=== PATIENT | female | born 1970 | race Caucasian/White ===

== ENCOUNTER → 2017-09-30 11:31 | Outpatient (REF) | payer BC, SELFPAY ==
--- NOTE | 2017-09-30 09:45 | PAPFT_PTH ---
PATIENT: Yue Guzman LOC: [facility] U#:[id number] AGE/SX: 54/F ROOM: RE09/30/[address]: Essie Hernandez : 1970 BED: DIS: SPEC #: [id number] RECD: 10/01/17 12:59 STATUS: GUI CALLAHAN #: [id number] IRASEMA: 09/30/17 09:[address]: Essie Hernandez DEPT: [facility] Cytology RECD BY: Deann Brown Tissues: 1 - CX/ENDOCX FOR PAP SMEARS Procedures: PAP THIN PREP/UVM Screening HPV DNA PROBE Comments: [id number]
[2017-10-02 14:08] LABS: Chlamydia Result Negative; GC Result Negative; Specimen Description CERVIX
== END ==
LOC: NCHCN 11:31
PROVIDERS: PCP Physician Assistant Medical; Visit Provider Physician Assistant Medical
DX: Z11.3 Encounter for screening for infections with a predominantly sexual mode of transmission (principal); Z12.4 Encounter for screening for malignant neoplasm of cervix; Z11.51 Encounter for screening for human papillomavirus (HPV); Z01.419 Encounter for gynecological examination (general) (routine) without abnormal findings
CPT/HCPCS: 87491; 87591; 88142; 87624

== ENCOUNTER 2018-06-22 12:43 | Outpatient (REF) | payer BC, SELFPAY ==
[2018-06-22 21:53] LABS: ALT 32 U/L (12-78); AST 31 U/L (15-37); Albumin 3.7 g/dL (3.4-5.0); Alkaline Phosphatase 74 U/L (46-116); Anion Gap 13.5 mmol/L (3-11); BUN 17 mg/dL (7-18); Bilirubin, Total 0.5 mg/dL (0.2-1.0); CO2 21.5 mmol/L (21.0-32.0); CREATININE 1.31 mg/dL (0.55-1.02); Calcium 8.7 mg/dL (8.5-10.1); Chloride 100 mmol/L (98-107); Estimated GFR 43.52 (mL/min/1.73m2); Glucose 116 mg/dL (70-100); Potassium 4.4 mmol/L (3.5-5.1); Sodium 135 mmol/L (136-145); Total Protein 7.2 g/dL (6.4-8.2)
== END 2018-06-22 13:03 ==
LOC: NCHCN 12:43
PROVIDERS: PCP Physician Assistant Medical; Visit Provider Nurse Practitioner Family
DX: N18.9 Chronic kidney disease, unspecified (principal); I10 Essential (primary) hypertension; G43.909 Migraine, unspecified, not intractable, without status migrainosus; K58.9 Irritable bowel syndrome, unspecified; F41.9 Anxiety disorder, unspecified
CPT/HCPCS: 80048; 80076

== ENCOUNTER 2018-12-07 21:53 | Outpatient (REF) | payer BC, SELFPAY ==
[2018-12-07 22:28] LABS: BUN 20 mg/dL (7-18); Calcium 8.8 mg/dL (8.5-10.1); Chloride 101 mmol/L (98-107); Estimated GFR 37.06 (mL/min/1.73m2); Glucose 105 mg/dL (70-100); Potassium 4.5 mmol/L (3.5-5.1); Sodium 136 mmol/L (136-145); TSH 2.85 uIU/mL (0.36-3.74)
== END 2018-12-07 22:13 ==
LOC: NCHCN 21:53
PROVIDERS: PCP Physician Assistant Medical; Visit Provider Nurse Practitioner Family
DX: I10 Essential (primary) hypertension (principal)
CPT/HCPCS: 80048; 84443

== ENCOUNTER 2019-03-15 12:12 | Outpatient (REF) | payer BC, SELFPAY ==
[2019-03-15 21:57] LABS: Anion Gap 11.5 mmol/L (3-11); BUN 18 mg/dL (7-18); CO2 25.5 mmol/L (21.0-32.0); CREATININE 1.49 mg/dL (0.55-1.02); Calcium 9.1 mg/dL (8.5-10.1); Calculated LDL 113 mg/dL; Chloride 99 mmol/L (98-107); Cholesterol 176 mg/dL (<200); Estimated GFR 37.35 (mL/min/1.73m2); Glucose 92 mg/dL (74-106); HDL Cholesterol 40 mg/dL (40-60); Potassium 4.4 mmol/L (3.5-5.1); Sodium 136 mmol/L (136-145); Triglyceride 118 mg/dL (<150)
== END 2019-03-15 12:32 ==
LOC: NCHCN 12:12
PROVIDERS: PCP Nurse Practitioner Family; Visit Provider Nurse Practitioner Family
DX: Z00.00 Encounter for general adult medical examination without abnormal findings (principal); N18.3 Chronic kidney disease, stage 3 (moderate)
CPT/HCPCS: 80048; 80061

== ENCOUNTER 2019-09-28 16:13 | Outpatient (REF) | payer BC, SELFPAY ==
[2019-09-28 19:43] LABS: Anion Gap 11.7 mmol/L (3-11); BUN 17 mg/dL (7-18); CO2 25.3 mmol/L (21.0-32.0); CREATININE 1.42 mg/dL (0.55-1.02); Calcium 9.4 mg/dL (8.5-10.1); Chloride 102 mmol/L (98-107); Estimated GFR 39.32 (mL/min/1.73m2); Glucose 91 mg/dL (74-106); Potassium 4.5 mmol/L (3.5-5.1); Sodium 139 mmol/L (136-145); TSH 2.16 uIU/mL (0.36-3.74)
== END 2019-09-28 16:33 ==
LOC: NCHCN 16:13
PROVIDERS: PCP Nurse Practitioner Family; Visit Provider Nurse Practitioner Family
DX: N18.3 Chronic kidney disease, stage 3 (moderate) (principal); I10 Essential (primary) hypertension; F41.9 Anxiety disorder, unspecified; G47.00 Insomnia, unspecified
CPT/HCPCS: 80048; 84443

== ENCOUNTER 2019-12-30 11:59 | Outpatient (REF) | payer BC, SELFPAY ==
[2019-12-30 19:04] LABS: Anion Gap 11.2 mmol/L (3-11); BUN 17 mg/dL (7-18); CO2 25.8 mmol/L (21.0-32.0); Calcium 9.6 mg/dL (8.5-10.1); Chloride 102 mmol/L (98-107); Estimated GFR 36.91 (mL/min/1.73m2); Glucose 115 mg/dL (74-106); Potassium 4.6 mmol/L (3.5-5.1); Sodium 139 mmol/L (136-145)
== END 2019-12-30 12:19 ==
LOC: NCHCN 11:59
PROVIDERS: PCP Nurse Practitioner Family; Visit Provider Nurse Practitioner Family
DX: G47.00 Insomnia, unspecified (principal); N18.30 Chronic kidney disease, stage 3 unspecified
CPT/HCPCS: 80048

== ENCOUNTER 2020-06-12 11:09 | Outpatient (CLI) | payer BC, SELFPAY ==
[2020-06-12 12:55] VITALS: BP 116/80; PULSE 79; TEMP 37.9; O2SAT 98
[2020-06-12] MEDS: Normal Saline 500 ML 30 ML IV (14:00)
[2020-06-12 14:08] VITALS: BP 103/69; PULSE 73; RESP 12; TEMP 37.5; O2SAT 96
[2020-06-12 14:17] VITALS: BP 102/68; PULSE 71; RESP 12; TEMP 37.5; O2SAT 96
[2020-06-12] MEDS: Normal Saline Flush 10 ML SYR IVP (14:31)
[2020-06-12 14:42] VITALS: BP 97/66; PULSE 72; RESP 12; TEMP 37.3; O2SAT 96
[2020-06-12 15:12] VITALS: BP 101/68; PULSE 73; RESP 12; TEMP 37.3; O2SAT 96
[2020-06-12 15:25] VITALS: BP 106/71; PULSE 74; RESP 12; TEMP 37.3; O2SAT 96
== END 2020-06-12 11:10 | disposition home or self-care (01) ==
LOC: INF 11:11
PROVIDERS: PCP Nurse Practitioner Family; Visit Provider Family Medicine
DX: U07.1 COVID-19 (principal)
CPT/HCPCS: 96365

== ENCOUNTER 2020-07-10 16:46 | Outpatient (REF) | payer BC, SELFPAY ==
[2020-07-10 19:18] LABS: Anion Gap 9.8 mmol/L (3-11); BUN 25 mg/dL (7-18); CO2 25.2 mmol/L (21.0-32.0); CREATININE 1.7 mg/dL (0.55-1.02); Calcium 9.2 mg/dL (8.5-10.1); Chloride 105 mmol/L (98-107); Estimated GFR 31.81 (mL/min/1.73m2); Glucose 97 mg/dL (74-106); Potassium 4.3 mmol/L (3.5-5.1); Sodium 140 mmol/L (136-145)
== END 2020-07-10 16:47 | disposition home or self-care (01) ==
LOC: NCHCN 16:46
PROVIDERS: PCP Nurse Practitioner Family; Visit Provider Nurse Practitioner Family
DX: N18.30 Chronic kidney disease, stage 3 unspecified (principal)
CPT/HCPCS: 80048

== ENCOUNTER 2020-11-06 20:37 | Outpatient (REF) | payer BC, SELFPAY ==
[2020-11-06 21:42] LABS: Anion Gap 9.7 mmol/L (3-11); BUN 17 mg/dL (7-18); CO2 26.3 mmol/L (21.0-32.0); CREATININE 1.6 mg/dL (0.55-1.02); Calcium 9.2 mg/dL (8.5-10.1); Chloride 105 mmol/L (98-107); Estimated GFR 34.12 (mL/min/1.73m2); Glucose 100 mg/dL (74-106); Potassium 4.5 mmol/L (3.5-5.1); Sodium 141 mmol/L (136-145)
== END 2020-11-06 20:38 | disposition home or self-care (01) ==
LOC: NCHCN 20:37
PROVIDERS: PCP Nurse Practitioner Family; Visit Provider Nurse Practitioner Family
DX: G47.00 Insomnia, unspecified (principal); F41.9 Anxiety disorder, unspecified; N95.1 Menopausal and female climacteric states; N18.30 Chronic kidney disease, stage 3 unspecified
CPT/HCPCS: 80048

== ENCOUNTER 2021-02-05 14:17 | Outpatient (REF) | payer BC, SELFPAY ==
[2021-02-05 20:41] LABS: Hemoglobin A1C 5.8 % (<5.7)
== END 2021-02-05 14:18 | disposition home or self-care (01) ==
LOC: NCHCN 14:17
PROVIDERS: PCP Nurse Practitioner Family; Visit Provider Nurse Practitioner Family
DX: N18.2 Chronic kidney disease, stage 2 (mild) (principal); R73.03 Prediabetes
CPT/HCPCS: 80048; 83036

== ENCOUNTER 2021-08-06 13:27 | Outpatient (REF) | payer BC, SELFPAY ==
[2021-08-06 15:26] LABS: BUN 16 mg/dL (7-18); CREATININE 1.4 mg/dL (0.55-1.02); Calcium 9.2 mg/dL (8.5-10.1); Chloride 102 mmol/L (98-107); Estimated GFR 39.64 (mL/min/1.73m2); Glucose 132 mg/dL (74-106); Potassium 4.2 mmol/L (3.5-5.1); Sodium 135 mmol/L (136-145)
[2021-08-06 15:50] LABS: Hemoglobin A1C 5.7 % (<5.7)
== END 2021-08-06 13:28 | disposition home or self-care (01) ==
LOC: NCHCN 13:27
PROVIDERS: PCP Nurse Practitioner Family; Visit Provider Nurse Practitioner Family
DX: I10 Essential (primary) hypertension (principal); R73.03 Prediabetes
CPT/HCPCS: 80048; 83036

== ENCOUNTER 2022-02-04 13:47 | Outpatient (REF) | payer BC, SELFPAY ==
[2022-02-04 15:58] LABS: Anion Gap 7.7 mmol/L (3-11); BUN 20 mg/dL (7-18); CO2 26.3 mmol/L (21.0-32.0); CREATININE 1.4 mg/dL (0.55-1.02); Calcium 9.1 mg/dL (8.5-10.1); Chloride 103 mmol/L (98-107); Estimated GFR 45.55 (mL/min/1.73m2); Glucose 121 mg/dL (74-106); Potassium 4.3 mmol/L (3.5-5.1); Sodium 137 mmol/L (136-145)
== END 2022-02-04 13:48 | disposition home or self-care (01) ==
LOC: NCHCN 13:47
PROVIDERS: PCP Nurse Practitioner Family; Visit Provider Nurse Practitioner Family
DX: N18.2 Chronic kidney disease, stage 2 (mild) (principal); R73.03 Prediabetes; F41.8 Other specified anxiety disorders
CPT/HCPCS: 80048; 83036

== ENCOUNTER 2022-12-17 18:34 | Outpatient (REF) | payer BC, SELFPAY ==
[2022-12-17 20:28] LABS: Anion Gap 9.9 mmol/L (3-11); BUN 16 mg/dL (7-18); CO2 22.1 mmol/L (21.0-32.0); CREATININE 1.4 mg/dL (0.55-1.02); Calcium 9.7 mg/dL (8.5-10.1); Chloride 103 mmol/L (98-107); Estimated GFR 45.27 (mL/min/1.73m2); Glucose 106 mg/dL (74-106); Potassium 4.6 mmol/L (3.5-5.1); Sodium 135 mmol/L (136-145)
[2022-12-17 20:44] LABS: Hemoglobin A1C 5.9 % (<5.7)
== END 2022-12-17 18:35 | disposition home or self-care (01) ==
LOC: NCHCN 18:34
PROVIDERS: PCP Nurse Practitioner Family; Visit Provider Nurse Practitioner Family
DX: R73.03 Prediabetes (principal); I10 Essential (primary) hypertension; N18.2 Chronic kidney disease, stage 2 (mild)
CPT/HCPCS: 80048; 83036

== ENCOUNTER 2023-07-10 14:57 | Outpatient (REF) | payer BC, SELFPAY ==
[2023-07-10 17:51] LABS: MRSA PCR Positive (Negative)
== END 2023-07-10 14:58 | disposition home or self-care (01) ==
LOC: NCHCN 14:57
PROVIDERS: PCP Nurse Practitioner Family; Visit Provider Nurse Practitioner Family
DX: Z86.14 Personal history of Methicillin resistant Staphylococcus aureus infection (principal); B95.62 Methicillin resistant Staphylococcus aureus infection as the cause of diseases classified elsewhere
CPT/HCPCS: 87641

== ENCOUNTER 2023-12-22 13:18 | Outpatient (REF) | payer BC, SELFPAY ==
--- OUTSIDE RECORDS SUMMARY | 2023-12-22 13:21 | XMS_ITS | Encounter Summary ---
Author Organization [facility] [place] [address] Care Team Providers Care Broommaker Name Role Phone Essie Hernandez Primary Care Provider + Encounter Details Date Type Department Care Team (Late st Contact Info) Description 10/09/2017 Telephone [place] [address] Sade Mo Social History Tobacco Use Types Packs/Day Years Used Date Smoking Tobacco: Former Cigarettes 1 12 1 - 11/26/1996 Smokeless Tobacco: Never Sex and Gender Information Value Date Recorded Sex Assigned at Not on file Gender Identity Not on file Sexual Orientation Not on file documented as of this encounter Miscellaneous Notes * Telephone Encounter - Sade Jo - 10/09/2017 11:07 AM EDT Left message with patient to call back and make follow up appointment . documented in this encounter Plan of Treatment Not on file documented as of this encounter Visit Diagnoses Not on filedocumented in this encounter Care Teams Broommaker Relationship Specialty Start Date End Date Essie Hernandez PA PCP - General Orthopaedic Surgery 11/26/16 12/10/18 documented as of this encounter
--- OUTSIDE RECORDS SUMMARY | 2023-12-22 13:21 | XMS_ITS | Clinical Summary ---
Author Organization [facility] Address [facility] [place] [address] Care Team Providers Care Wharf Tender Name Role Phone Emilia Mirza APRN Primary Care Provider [phone] Allergies Active Allergy Reactions Criticality Noted Date Comments Adhesive 11/26/2016 Medications Medication Sig Dispensed Refills Start Date End Date Status SUMAtriptan (IMITREX) 100 mg Tablet Take 100 mg by mouth as needed for Migraine. Active norgestrel-ethinyl estradiol (LO/OVRAL, CRYSELLE) 0.3-30 mg-mcg Tablet Take 1 tablet by mouth daily. Active PARoxetine (PAXIL) 40 mg Tablet Take 40 mg by mouth every morning. Active ranitidine (ZANTAC) 150 mg Capsule Take 150 mg by mouth 2 times daily. Active meTOPROLOL succinate (TOPROL-XL) 50 mg Tablet Sustained Release 24 hr Take 50 mg by mouth daily. Active lactobacillus rhamnosus, GG, (CULTURELLE) 10 billion cell Capsule Take 1 capsule by mouth daily. Active MULTIVIT WITH CALCIUM,IRON,MIN (WOMEN'S DAILY MULTIVITAMIN ORAL) Take by mouth daily. Active calcium-vitamin D3 600 mg calcium- 400 unit Tablet Take by mouth. Active b complex vitamins Capsule Take 1 capsule by mouth daily. Active acetaminophen (TYLENOL) 500 mg Tablet Take 1,000 mg by mouth every 6 hours as needed for Pain. Active ibuprofen (ADVIL;MOTRIN) 200 mg Tablet Take 200 mg by mouth every 6 hours as needed for Pain. Active simethicone (MYLICON) 80 mg Tablet, Chewable Take 80 mg by mouth every 6 hours as needed for Flatulence. Active loperamide (IMODIUM A-D) 2 mg Tablet Take by mouth 4 times daily as needed for Diarrhea. Maximum 16 mg in 24 hours Active Active Problems Problem Noted Date Diagnosed Date Hypertension 11/30/2016 Irritable bowel syndrome wit h both constipation and diarrhea 11/30/2016 Anxiety 11/30/2016 CKD (chronic kidney disease) stage 3, GFR 30-59 ml/min 11/30/2016 Social History Tobacco Use Types Packs/Day Years Used Date Smoking Tobacco: Former Cigarettes 1 12 1 - 11/26/1996 Smokeless Tobacco: Never Sex and Gender Information Value Date Recorded Sex Assigned at Not on file Gender Identity Not on file Sexual Orientation Not on file Last Filed Vital Signs Vital Sign Reading Time Taken Comments Blood Pressure 126/88 11/26/2016 4:25 PM EDT Pulse 67 11/26/2016 4:25 PM EDT Temperature - - Respiratory Rate - - Oxygen Saturation - - Inhaled Oxygen Concentration - - Weight 94.3 kg (208 lb) 11/25/2016 4:50 PM EDT Height 160.5 cm (5' 3.2) 11/25/2016 4:50 PM EDT Body Mass Index 36.61 11/25/2016 4:50 PM EDT Plan of Treatment Health Maintenance Due Date Last Done Comments CT Colonography 1970 Colonoscopy 1970 Colorectal Cancer Screening 1970 FIT DNA 1970 FIT 1970 Sigmoidoscopy (10 year) with FIT yearly 1970 Sigmoidoscopy 1970 HIV screen 1988 Hepatitis C Screening 1988 Lipid Screening 1988 Hepatitis B vaccine (0-59 yrs) (1) 1989 Tetanus/Diphtheria/Pertussis Vaccines (1 - Tdap) 06/30 HPV test 2000 PAP Smear 2000 Breast Cancer Share Decision Needed 2010 Breast Cancer screening 2010 Zoster vaccine (1 of 2) 2020 Covid-19 Vaccine (1 - 2022-24 season) 2023 Influenza (Flu) vaccine (1 o f 1 - Influenza standard series) 10/26/2023 Diabetes Screening (HgbA1C or Glucose) Discontinued Procedures Procedure Name Priority Date/Time Associated Diagnosis Comments BASIC METABOLIC PANEL Routine 11/26/2016 4:55 PM EDT Essential hypertension from Last 3 Months or Most Recently Relevant to Health Maintenance Results * (ABNORMAL) Basic Metabolic Panel (non-fasting) (11/26/2016 4:55 PM EDT) Glucose 99 65 - 199 mg/dL [facility] Comment:Diabetes: >=200 mg/d L plus symptoms Blood Urea Nitrogen 13 8 - 18 mg/dL [facility] Creatinine 1.35(H) 0.70 - 1.20 mg/dL [facility] Comment: Please note that the pediatric reference intervals supplied above were not validated at [facility] [place]. Results from pediatric patients should be interpreted in conjunction to the patient's age, height and muscle mass. Sodium 139 135 - 145 mmol/L [facility] Potassium 3.6 3.5 - 5.0 mmol/L [facility] Comment: Please note: ??Patients with WBC >100,000 may have falsely elevated Potassium levels. ??For accurate Potassium quantification in these patients send serum separator tube (gold top) for subsequent determinations. ??Contact the Clinical Chemistry Laboratory if there are any questions. Chloride 99 98 - 107 mmol/L [facility] Carbon Dioxide 23 22 - 31 mmol/L [facility] Anion Gap 17(H) 5 - 15 mmol/L [facility] Calcium 8.8 8.5 - 10.5 mg/dL [facility] Est Glomerular Filtration Rate 42(L) >=60 [facility] Comment: This estimated GFR (eGFR) value was calculated using the MDRD equation which has been validated on patients between the ages of 18 and 70. The MDRD should not be used to assess kidney function in patients < 18 years of age or in patients with extremes of body mass, or in patients with acute kidney failure. This value should be multiplied by 1.2 for patients. For further information please copy and paste the following links into your internet browser. [email or web address] Blood specimen (specimen) 11/26/2016 4:55 PM EDT 11/26/2016 5:07 PM EDT Narrative Resulting Agency Comment Spec In Lab All Scott MD CHEMISTRY ORDERABLES [facility] [place] [address] from Last 3 Months or Most Recently Relevant to Health Maintenance Care Teams Wharf Tender Relationship Specialty Start Date End Date Emilia Mirza, ROOFING MACHINE OPERATOR PCP - General Family Medicine 12/11/18
--- OUTSIDE RECORDS SUMMARY | 2023-12-22 13:21 | XMS_ITS | Encounter Summary ---
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 [address] Essential hypertension; CKD (chronic kidney disease) stage 3, GFR 30-59 ml/min Social History Tobacco Use Types Packs/Day Years Used Date Smoking Tobacco: Former Cigarettes 1 12 1 - 11/26/1996 Smokeless Tobacco: Never Sex and Gender Information Value Date Recorded Sex Assigned at Not on file Gender Identity Not on file Sexual Orientation Not on file documented as of this encounter Last Filed Vital Signs Vital Sign Reading [...] Mass Index 36.61 11/25/2016 4:50 PM EDT documented in this encounter Progress Notes * All Scott MD - 11/26/2016 3:00 PM EDT 46 y/o woman seen at the request of for creatinine elevation The patient was sent to this clinic as she had a mildly elevated serum creatinine of 1.38mg/dl recently in September, she is accompanied by her sister who has dysplastic kidneys, reportedly the patient's serum creatinine was reatinine was 1.4mg/dl four years ago which at the time was attributed to Ibuprofen The patient has not observed any urine changes, no hematuria, no dysuria, no nocturia Had a normal renal ultrasound Occasional ibuprofen but reportedly no more than 2 tabs a day The patient was diagnosed with HTN since 3-4 years, remember her highest BP around 160/100 Checks BP at work 140/90 137/80, 110/70 The patient reports anxiety about have impaired renal function and fear of dialysis Patient had near syncopal event with hypotension in office after lying down and sitting up on the exam table Previous labs: 09/24/16 Na 1236 K 4.3 Cl 100 CO2 25.3 BUN 14 creat 1.37 glu 90 Previous renal imagin10/01/16 renal ultrasound R kidney 10.1cm, L kidney 9.6cm no postvoid residual Past Medical Hx: CKD HTN Migraine Anxiety IBS sparined right angle some time ago Fam Hx: Sister had dysplastic kidney, materal grand mother had renal cancer Soc Hx: No tobacco, no alcohol, R/S: Migraines, episodes of anxiety, episodses of dizziness and lightheadedness, no fever, no chills, nonight sweats, no dyspnea, no cough, no chest pain, no palpitations, rare diarrhea, rare constipation, no edema, no rash, no vision changes, the remaining review of systems was negative Medications: Current Outpatient Prescriptions: ??? SUMAtriptan (IMITREX) 100 mg Tablet, Take 100 mg by mouth as needed for Migraine., Disp: , Rfl: ??? norgestrel-ethinyl estradiol (LO/OVRAL, CRYSELLE) 0.3-30 mg-mcg Tablet, Take 1 tablet by mouth daily., Disp: , Rfl: ??? PARoxetine (PAXIL) 40 mg Tablet, Take 40 mg by mouth every morning., Disp: , Rfl: ??? ranitidine (ZANTAC) 150 mg Capsule, Take 150 mg by mouth 2 times daily., Disp: , Rfl: ??? meTOPROLOL succinate (TOPROL-XL) 50 mg Tablet Sustained Release 24 hr, Take 50 mg by mouth daily., Disp: , Rfl: ??? lactobacillus rhamnosus, GG, (CULTURELLE) 10 billion cell Capsule, Take 1 capsule by mouth daily., Disp: , Rfl: ??? MULTIVIT WITH CALCIUM,IRON,MIN (WOMEN'S DAILY MULTIVITAMIN ORAL), Take by mouth daily., Disp: ,Rfl: ??? calcium-vitamin D3 600 mg calcium- 400 unit Tablet, Take by mouth., Disp: , Rfl: ??? b complex vitamins Capsule, Take 1 capsule by mouth daily., Disp: , Rfl: ??? acetaminophen (TYLENOL) 500 mg Tablet, Take 1,000 mg by mouth every 6 hours as needed for Pain., Disp: , Rfl: ??? ibuprofen (ADVIL;MOTRIN) 200 mg Tablet, Take 200 mg by mouth every 6 hours as needed for Pain.,Disp: , Rfl: ??? simethicone (MYLICON) 80 mg Tablet, Chewable, Take 80 mg by mouth every 6 hours as needed for Flatulence., Disp: , Rfl: ??? loperamide (IMODIUM A-D) 2 mg Tablet, Take by mouth 4 times daily as needed for Diarrhea. Maximum 16 mg in 24 hours, Disp: , Rfl: Allergies Allergen Reactions ??? Adhesive Physical exam: Most Recent Vitals: 11/25/16 1650 BP: (!) 160/98 Pulse: 96 PainSc: 0 - No pain Most Recent Vitals: 11/26/16 1625 BP: 126/88 Pulse: 67 PainSc: mildly overweight Normal color No lymphadenopathy No goiter Lungs clears Heart regular rhythm, no rub, no murmur No costophrenic angle tenderness Abdomen soft, non tender, no bruit and no organ enlargement detected Limbs no edema, no palmar erythema U/A: 1.005 pH 5 prot neg, glu neg, blood+ Urine sediment: few epithileal cells, no RBC seen Labs: Results for YUE MERCER ( ) as of 11/27/2016 13:17 Ref. Range 11/26/2016 16:55 11/26/2016 17:30 WBC Latest Ref Range: 4.0 - 9.5 x10(3)/mcL 9.4 RBC Latest Ref Range: 4.00 - 5.21 x10(6)/mcL 4.60 Hemoglobin Latest Ref Range: 11.7 - 15.5 gm/dL 14.3 Hematocrit Latest Ref Range: 35.7 - 45.8 % 41.9 MCV Latest Ref Range: 82.6 - 94.4 fL 91.1 MCH Latest Ref Range: 27.1 - 32.0 pg 31.1 MCHC Latest Ref Range: 31.7 - 35.0 gm/dL 34.1 RDWSD Latest Ref Range: 37.0 - 46.0 fL 41.1 RDWCV Latest Ref Range: 11.5 - 14.1 % 12.2 Platelets Latest Ref Range: 145 - 357 x10(3)/mcL 302 MPV Latest Ref Range: 7.6 - 12.9 fL 9.5 nRBC % Auto Latest Units: % 0.0 nRBC Abs Auto Latest Ref Range: 0.000 - 0.000 x10(3)/mcL 0.000 Neutr Abs (ANC) Latest Ref Range: 1.70 - 6.10 x10(3)/mcL 5.44 Neutrophils % Latest Units: % 57.6 Immature Gran % Latest Units: % 0.30 Lymphocytes % Latest Units: % 27.6 Monocytes % Latest Units: % 12.3 Eosinophils % Latest Units: % 1.4 Basophils % Latest Units: % 0.8 Celeste Gran Abs Latest Ref Range: 0.00 - 0.04 x10(3)/mcL 0.03 Lymphocytes Abs Latest Ref Range: 0.9 - 3.2 x10(3)/mcL 2.6 Monocyte Abs Latest Ref Range: 0.3 - 0.9 x10(3)/mcL 1.2 (H) Eosinophils Abs Latest Ref Range: 0.0 - 0.4 x10(3)/mcL 0.1 Basophils Abs Latest Ref Range: 0.0 - 0.1 x10(3)/mcL 0.1 Sodium Latest Ref Range: 135 - 145 mmol/L 139 Potassium Latest Ref Range: 3.5 - 5.0 mmol/L 3.6 Chloride Latest Ref Range: 98 - 107 mmol/L 99 CO2 Latest Ref Range: 22 - 31 mmol/L 23 Anion Gap Latest Ref Range: 5 - 15 mmol/L 17 (H) BUN Latest Ref Range: 8 - 18 mg/dL 13 Creatinine Latest Ref Range: 0.70 - 1.20 mg/dL 1.35 (H) Estimated GFR Latest Ref Range: >=60 42 (L) Glucose Lvl Latest Ref Range: 65 - 199 mg/dL 99 Calcium Latest Ref Range: 8.5 - 10.5 mg/dL 8.8 Alb/Cr Ratio, Random Latest Ref Range: 0 - 29 mcg/mg Cr 51 (H) U Albumin Conc, Random Latest Units: mg/L 14.9 U Creatinine Latest Units: mg/dL 29 A/P: The patient has mildly decreased renal function with a normal urine sediment and ultrasound, reportedly unchanged since 4 years A spot urine is positive for microalbuminuria The patient is treated for HTN but apparently he BP elevations have been mild and she currently is prone to presyncopal episodes raising the possibility of possible over treatment of BP metanephrines were checked because of headaches and possible episodic nature of HTN and were normalruling out pheochromocytoma Would consider stopping Toprol and check 24hr BP monitoring as patient might not have HTN but her BP might rise at times secondary to anxiety The patient did not want to stop Toprol at this time It is possible the her creatinine improves of antihypertensive medications Risk factors for worsening renal function were discussed, recommended caution with NSAIDS The patient was reassured about the favorable prognosis of stage 3 CKD with normal urine sediment RTC in 6 months documented in this encounter Plan of Treatment Not on file documented as of this encounter Procedures Procedure Name Priority Date/Time Associated Diagnosis Comments U ALBUMIN/CRE RATIO Routine 11/26/2016 5 :30 PM EDT Essential hypertension HEMOGRAM Routine 11/26/2016 4:55 PM EDT Essential hypertension DIFFERENTIAL, AUTOMATED Routine 11/26/2016 4:55 PM EDT Essential hypertension METANEPHRINES, FRACTIONATED FREE, PLASMA Routine 11/26/2016 4:55 PM EDT Essential hypertension CBC (WITH DIFF) Routine 11/26/2016 4:55 PM EDT Essential hypertension BASIC METABOLIC PANEL Routine 11/26/2016 4:55 PM EDT Essential hypertension documented in this encounter Results * (ABNORMAL) U Albumin/Cre Ratio (11/26/2016 5:30 PM EDT) Albumin / Creatinin Ratio, Urine 51(H) 0 - 29 mcg/mg Cr [facility] Comment: Reference Ranges: <30 mcg/mg: Normal 30-300 mcg/mg: Moderately increased albuminuria.* >300 mcg/mg: Severely increased albuminuria. * ACEI or ARB recommended if diabetic; suggested if BP>130/80 without diabetes ACEI or ARB strongly recommended if diabetic; recommended if BP>130/80 without diabetes Two of three specimens collected within a 3 to 6 month period should be abnormal before considering a patient to have albuminuria. Transient causes: exercise, fever, infection, CHF, marked hyperglycemia or hypertension. Persistent albuminuria indicates CKD and is an independent risk factor for ASCVD. ADA Standards of Medical Care in Diabetes-2016; KDIGO: Kidney International Supplements (2012) 2, 357? 362 Albumin, Urine 14.9 mg/L [facility] Creatinine, Urine 29 mg/dL [facility] Urine specimen (specimen) 11/26/2016 5:30 PM EDT 11/26/2016 5:30 PM EDT Narrative Resulting Agency Comment Spec In Lab All Scott MD URINE ORDERABLES [facility] [place] [address] * (ABNORMAL) Differential, Automated (11/26/2016 4:55 PM EDT) Pathologist [facility] Neutrophil % 57.6 % [facility] Neutrophil Absolute 5.44 1.70 - 6.10 x10(3)/[facility] Lymph % 27.6 % [facility] Lymphocytes Abs 2.6 0.9 - 3.2 x10(3)/[facility] Monocyte % 12.3 % [facility] Monocyte Abs 1.2(H) 0.3 - 0.9 x10(3)/[facility] Eos % 1.4 % [facility] Eosinophils Abs 0.1 0.0 - 0.4 x10(3)/[facility] Basophil % 0.8 % [facility] Baso Absolute 0.1 0.0 - 0.1 x10(3)/[facility] Immature Gran % 0.30 % [facility] Comment: Immature granulocytes(IG's)percentage and absolute count will include metamyelocytes, myelocytes, and promyelocytes. Blood smears from CBCs yielding IG's will be scanned manually for concordance. If this scan disagrees with the automated IG or if promyelocytes are noted, a manual differential will be performed. Immature Gran Absolute 0.03 0.00 - 0.04 x10(3)/ L [facility] Blood specimen (specimen) 11/26/2016 4:55 PM EDT 11/26/2016 5:07 PM EDT Narrative Resulting Agency Comment Spec In Lab All Scott MD HEMATOLOGY ORDERABLE S [facility] [place] [address] * Hemogram (11/26/2016 4:55 PM EDT) [facility] White Blood Cell 9.4 4.0 - 9.5 x10(3)/[facility] Red Blood Cell 4.60 4.00 - 5.21 x10(6)/[facility] Hemoglobin 14.3 11.7 - 15.5 gm/dL [facility] Hematocrit 41.9 35.7 - 45.8 % [facility] Mean Cell Volume 91.1 82.6 - 94.4 fL [facility] Mean Cell Hemoglobin 31.1 27.1 - 32.0 pg [facility] Mean Cell Hemoglobin Concentration 34.1 31.7 - 35.0 gm/dL [facility] Platelet 302 145 - 357 x10(3)/[facility] RDW Standard Deviation 41.1 37.0 - 46.0 [facility] RDW coefficient of variation 12.2 11.5 - 14.1 % [facility] Mean Platelet Volume 9.5 7.6 - 12.9 fL [facility] NRBC% auto 0.0 % [facility] NRBC Absolute 0.000 0.000 - 0.000 x10(3)/[facility] Blood specimen (specimen) 11/26/2016 4:55 PM EDT 11/26/2016 5:07 PM EDT Narrative Resulting Agency Comment Spec In Lab All Scott MD HEMATOLOGY ORDERABLE S [facility] [place] [address] * Metanephrines, Fractionated Free, plasma (11/26/2016 4:55 PM EDT) Normetanephrine, Free (JUNE) 0.40 <0.90 nmol/L [facility] Comment: Test Performed by: [facility] [address] [place] [address] Metanephrine, Free (JUNE) <0.20 <0.50 nmol/L [facility] Comment: ADDITIONAL INFORMATION This test was developed and its performance characteristics determined by [facility] in a manner consistent with CLIA requirements. This test has not been cleared or approved by the U.S. Food and Drug Administration. Test Performed by: [facility] [address] [place] [address] Blood specimen (specimen) 11/26/2016 4:55 PM EDT 11/27/2016 8:52 AM EDT Narrative Resulting Agency Comment Spec In Lab All Scott MD LAB SEND OUT ORDERAB LES [facility] [place] [address] * (ABNORMAL) Basic Metabolic Panel (non-fasting) (11/26/2016 4:55 PM EDT) Glucose 99 65 - 199 mg/dL [facility] Comment:Diabetes: >=200 mg/d L plus symptoms Blood Urea Nitrogen 13 8 - 18 mg/dL [facility] Creatinine 1.35(H) 0.70 - 1.20 mg/dL [facility] Comment: Please note that the pediatric reference intervals supplied above were not validated at [facility]. Results from pediatric patients should be interpreted in conjunction to the patient's age, height and muscle mass. Sodium 139 135 - 145 mmol/L [facility] Potassium 3.6 3.5 - 5.0 mmol/L [facility] Comment: Please note: ??Patients with WBC >100,000 may have falsely elevated Potassium levels. ??For accurate Potassium quantification in these patients send serum separator tube (gold top) for subsequent determinations. ??Contact the Clinical Chemistry Laboratory if there are any questions. Chloride 99 98 - 107 mmol/L [facility] Carbon Dioxide 23 22 - 31 mmol/L [facility] Anion Gap 17(H) 5 - 15 mmol/L [facility] Calcium 8.8 8.5 - 10.5 mg/dL [facility] Est Glomerular Filtration Rate 42(L) >=60 [facility] Comment: This estimated GFR (eGFR) [...] the following links into your internet browser. [email or web address] Blood specimen (specimen) 11/26/2016 4:55 PM EDT 11/26/2016 5:07 PM EDT Narrative Resulting Agency Comment Spec In Lab All Scott MD CHEMISTRY ORDERABLES Performing Organization Address City/State/[facility] Co de Phone Number [facility] [place] [phone] documented in this encounter Visit Diagnoses Diagnosis Essential hypertension Unspecified essential hypertension CKD (chronic kidney disease) stage 3, GFR 30-59 ml/min Chronic kidney disease, Stage III (moderate) documented in this encounter Care Teams Knowledge Analyst Relationship Specialty Start Date End Date Essie Hernandez PA PCP - General Orthopaedic Surgery 11/26/16 12/10/18 documented as of this encounter
[2023-12-22 16:03] LABS: HCT 42.6 % (36.0-46.0); HGB 14.6 g/dL (11.2-15.7); MCH 31.2 pg (27.0-33.0); MCHC 34.3 % (32.0-36.0); MCV 91 fL (80-95); MPV 10.7 fL (8.0-11.0); Platelet Count 208 10^3/uL (130-400); RBC 4.68 10^6/uL (3.93-5.22); RDW 12.2 % (11.7-14.6); RDW-SD 40.7 fL; WBC 7.61 10^3/uL (4.4-10.8)
[2023-12-22 17:09] LABS: Hemoglobin A1C 5.3 % (<5.7)
[2023-12-22 17:30] LABS: ALT 30 U/L (14-59); AST 33 U/L (15-37); Alkaline Phosphatase 95 U/L (46-116); Anion Gap 12.6 mmol/L (3-11); BUN 19 mg/dL (7-18); Bilirubin, Total 0.94 mg/dL (0.2-1.0); CO2 25.4 mmol/L (21.0-32.0); CREATININE 1.5 mg/dL (0.55-1.02); Calcium 9.5 mg/dL (8.5-10.1); Calculated LDL 99 mg/dL (<100); Chloride 98 mmol/L (98-107); Cholesterol 175 mg/dL (<200); Estimated GFR 41.41 (mL/min/1.73m2); Glucose 103 mg/dL (74-106); HDL Cholesterol 54 mg/dL (40-60); Potassium 4.3 mmol/L (3.5-5.1); Sodium 136 mmol/L (136-145); Total Protein 7.7 g/dL (6.4-8.2); Triglyceride 111 mg/dL (<150)
[2023-12-22 18:06] LABS: COMMENT (LAB VIEW ONLY) 31.71 mg/dL; Microalb ug/mg Crea 8.2 ug/mg Cr
== END 2023-12-22 13:19 | disposition home or self-care (01) ==
LOC: NCHCN 13:18
PROVIDERS: PCP Physician Assistant Medical; Visit Provider Physician Assistant Medical
DX: I10 Essential (primary) hypertension (principal); R73.03 Prediabetes; K76.0 Fatty (change of) liver, not elsewhere classified
CPT/HCPCS: 80053; 80061; 85027; 82043; 82570; 83036

== ENCOUNTER 2024-06-07 14:53 | Outpatient (REF) | payer BC, SELFPAY ==
--- NOTE | 2024-06-07 13:15 | PAPFT_PTH ---
PATIENT: Yue Guzman LOC: [facility]#:[id number] AGE/SX: 53/F ROOM: RE06/07/[address]: Tutu Daily : 1970 BED: DIS: 06/07/2024 SPEC #: [id number] RECD: 06/08/24 13:01 STATUS: GUI REQ #: [id number] IRASEMA: 06/07/24 13:[address]: Tutu Daily DEPT: [facility] Cytology RECD BY: Deann Brown Tissues: 1 - CX/ENDOCX FOR PAP SMEARS Procedures: PAP THIN PREP/UVM Screening HPV DNA PROBE Comments: [id number] (HPV 16 & 18/45)
[2024-06-07 15:24] LABS: Abs Immature Grans 0.01 10^3/uL (0.0-0.06); Absolute Basophil Count 0.08 10^3/uL (0.0-0.2); Absolute Eosinophil Count 0.11 10^3/uL (0.0-0.7); Absolute Lymphocyte Count 2.12 10^3/uL (1.2-3.4); Absolute Monocyte Count 1.13 10^3/uL (0.1-0.8); Absolute Neutrophil Count 4.03 10^3/uL (1.2-6.7); Basophils % 1.1 %; Eosinophils % 1.5 %; HCT 43.1 % (36.0-46.0); HGB 14.7 g/dL (11.2-15.7); Immature Grans % 0.1 %; Lymphocytes % 28.3 %; MCH 31.4 pg (27.0-33.0); MCHC 34.1 % (32.0-36.0); MCV 92 fL (80-95); MPV 9.4 fL (8.0-11.0); Monocytes % 15.1 %; Neutrophils % 53.9 %; Platelet Count 272 10^3/uL (130-400); RBC 4.68 10^6/uL (3.93-5.22); RDW 12.1 % (11.7-14.6); RDW-SD 41.1 fL; WBC 7.48 10^3/uL (4.4-10.8)
[2024-06-07 15:50] LABS: ALT 57 U/L (14-59); AST 47 U/L (15-37); Albumin 3.9 g/dL (3.4-5.0); Alkaline Phosphatase 102 U/L (46-116); BUN 15 mg/dL (7-18); Bilirubin, Total 0.8 mg/dL (0.2-1.0); CREATININE 1.6 mg/dL (0.55-1.02); Calcium 9.8 mg/dL (8.5-10.1); Chloride 103 mmol/L (98-107); Estimated GFR 38.33 (mL/min/1.73m2); Glucose 103 mg/dL (74-106); Potassium 5.3 mmol/L (3.5-5.1); Sodium 140 mmol/L (136-145); Total Protein 7.8 g/dL (6.4-8.2)
== END 2024-06-07 14:54 | disposition home or self-care (01) ==
LOC: NCHCN 14:53
PROVIDERS: PCP Physician Assistant Medical; Visit Provider Physician Assistant Medical
DX: K76.0 Fatty (change of) liver, not elsewhere classified (principal)
CPT/HCPCS: 80053; 88142; 85025; 87624

== ENCOUNTER 2024-12-13 13:43 | Outpatient (REF) | payer BC, SELFPAY ==
[2024-12-13 15:56] LABS: HCT 43.1 % (36.0-46.0); HGB 14.9 g/dL (11.2-15.7); MCH 31.8 pg (27.0-33.0); MCHC 34.6 % (32.0-36.0); MCV 92 fL (80-95); MPV 9.8 fL (8.0-11.0); Platelet Count 279 10^3/uL (130-400); RBC 4.69 10^6/uL (3.93-5.22); RDW 12.0 % (11.7-14.6); RDW-SD 40.5 fL; WBC 8.49 10^3/uL (4.4-10.8)
[2024-12-13 16:13] LABS: Hemoglobin A1C 5.8 % (<5.7)
[2024-12-13 16:37] LABS: ALT 47 U/L (14-59); AST 50 U/L (15-37); Albumin 4.0 g/dL (3.4-5.0); Alkaline Phosphatase 108 U/L (46-116); Anion Gap 11.7 mmol/L (3-11); BUN 12 mg/dL (7-18); Bilirubin, Total 0.7 mg/dL (0.2-1.0); CO2 25.3 mmol/L (21.0-32.0); Calcium 9.1 mg/dL (8.5-10.1); Calculated LDL 99 mg/dL (<100); Chloride 101 mmol/L (98-107); Cholesterol 168 mg/dL (<200); Estimated GFR 44.71 (mL/min/1.73m2); Glucose 97 mg/dL (74-106); HDL Cholesterol 52 mg/dL (>or=50); Potassium 4.4 mmol/L (3.5-5.1); Sodium 138 mmol/L (136-145); Total Protein 7.3 g/dL (6.4-8.2); Triglyceride 88 mg/dL (<150); Vitamin D 25 Total 95 ng/mL (30-100)
[2024-12-15 10:19] LABS: Hepatitis C Ab w Rflx HCV PCR Negative (Negative)
== END 2024-12-13 13:44 | disposition home or self-care (01) ==
LOC: NCHCN 13:43
PROVIDERS: PCP Physician Assistant Medical; Visit Provider Physician Assistant Medical
DX: K76.0 Fatty (change of) liver, not elsewhere classified (principal); R73.03 Prediabetes; F41.9 Anxiety disorder, unspecified; I10 Essential (primary) hypertension; R79.89 Other specified abnormal findings of blood chemistry
CPT/HCPCS: 80053; 80061; 82306; 85027; 86803; 83036